=== PATIENT | female | born 1980 | race Caucasian/White ===

== ENCOUNTER 2018-11-15 06:19 | Emergency (ER) | payer MEDICAID ==
[~2018-11-15] VITALS: Ht 162.6 cm; Wt 81.6 kg
--- OUTSIDE RECORDS SUMMARY | 2018-11-15 06:29 | XMS REPORT ---
Author Author BRUNO JARVIS Organization [facility] Address [address] [place] [address] Care Team Providers Care Photographic Reproduction Technician Name Role Phone BRUNO JARVIS Unavailable PROBLEMS Unknown Problems ALLERGIES Substance Reaction Event Type Date Status Effexor Unknown Drug Allergy Jun, Active ENCOUNTERS Encounter Location Date Diagnosis [facility] [id number] [place] [phone] Jun, Poison david L23.7 [facility] [address] [phone] Nov, Fever R50.9 and Influenza A J10.1 [facility] [id number] [place] [phone] Jul, Encounter for dental examination Z01.20 IMMUNIZATIONS Vaccine Route Administration Date Status SOLUMEDROL (UP TO 125 MG) IM Intramuscular Jul 16, 2018 Administered SOCIAL HISTORY Never Assessed REASON FOR VISIT poison david all over even in genital areas.--HEIKE Hampton PLAN OF CARE Activity Details Follow Up prn Reason: VITAL SIGNS Height 64 in 2018-07-16 Weight 174.4 lbs 2018-07-16 Temperature 98.5 degrees Fahrenheit 2018-07-16 Heart Rate 62 bpm 2018-07-16 Respiratory Rate 18 2018-07-16 BMI 29.93 kg/m2 2018-07-16 Blood pressure systolic 108 mmHg 2018-07-16 Blood pressure diastolic 74 mmHg 2018-07-16 MEDICATIONS Medication Instructions Dosage Frequency Start Date End Date Duration Status Hydrocortisone 2.5 % Externally Twice a day 1 application to affected area 12h 10 days Active Alprazolam 1 MG Orally three times a day as needed 1 tablet Active Ventolin HFA 108 (90 Base) MCG/ACT Inhalation every 4 hrs 2 puffs as needed 4h Active Albuterol Active RESULTS No Results PROCEDURES Procedure Date Ordered Result Body Site SOLUMEDROL (UP TO 125 MG) Jul 16, 2018 THER/PROPH/DIAG INJ, SC/IM Jul 16, 2018 INSTRUCTIONS MEDICATIONS ADMINISTERED No Known Medications MEDICAL (GENERAL) HISTORY Type Description Date Medical History Asthma Medical History Anxiety Surgical History Gall Bladder 1998 Hospitalization History Child Births
--- OUTSIDE RECORDS SUMMARY | 2018-11-15 06:29 | XMS REPORT ---
Author Author BRUNO JARVIS Organization [facility] Address [address] [place] [address] Care Team Providers Care Record Searcher Name Role Phone BRUNO JARVIS Unavailable PROBLEMS Unknown Problems ALLERGIES Substance Reaction Event Type Date Status Effexor Unknown Drug Allergy Nov, Active ENCOUNTERS Encounter Location Date Diagnosis [facility] [id number], [place] [phone] Nov, Fever R50.9 and Influenza A J10.1 [facility] [id number] [phone] Jul, Encounter for dental examination Z01.20 IMMUNIZATIONS No Known Immunizations SOCIAL HISTORY Never Assessed REASON FOR VISIT Flu symptoms Pt reports fever, congestion for 2-3 days HEIKE Garcia PLAN OF CARE Activity Details Follow Up prn Reason: VITAL SIGNS Height 64 in 2017-11-27 Weight 174.2 lbs 2017-11-27 Temperature 100.2 degrees Fahrenheit 2017-11-27 Heart Rate 66 bpm 2017-11-27 Respiratory Rate 18 2017-11-27 BMI 29.90 kg/m2 2017-11-27 Blood pressure systolic 110 mmHg 2017-11-27 Blood pressure diastolic 62 mmHg 2017-11-27 MEDICATIONS Medication Instructions Dosage Frequency Start Date End Date Duration Status Ventolin HFA 108 (90 Base) MCG/ACT Inhalation every 4 hrs 2 puffs as needed 4h Active Albuterol Active RESULTS Name Result Date Reference Range INFLUENZA A & B (IN HOUSE) 2017-11-27 INFLUENZA A positive INFLUENZA B negative Control + Lot # [id number] Exp date PROCEDURES Procedure Date Ordered Result Body Site INFLUENZA ASSAY W/OPTIC Nov 27, 2017 INSTRUCTIONS MEDICATIONS ADMINISTERED No Known Medications MEDICAL (GENERAL) HISTORY Type Description Date Medical History Asthma Medical History Anxiety Surgical History Gall Bladder 1998 Hospitalization History Child Births
--- OUTSIDE RECORDS SUMMARY | 2018-11-15 06:30 | XMS REPORT ---
Author Author RADHA HERNANDEZ Organization [facility] Address [address] [place] [address] Care Team Providers Care Examining Officer Name Role Phone RADHA HERNANDEZ Unavailable PROBLEMS Type Condition ICD9-CM Code [id number] Code Onset Dates Condition Status SNOMED Code Problem Encounter for dental examination Z01.20 Active [id number] Assessment Encounter for dental examination Z01.20 Jul, Active [id number] ALLERGIES Substance Reaction Event Type Date Status Effexor Unknown Drug Allergy Jul, Active SOCIAL HISTORY No smoking Hx information available PLAN OF CARE VITAL SIGNS Heart Rate 51 bpm 2016-07-25 Blood pressure systolic 99 mmHg 2016-07-25 Blood pressure diastolic 60 mmHg 2016-07-25 MEDICATIONS Medication Instructions Dosage Frequency Start Date End Date Duration Status Ventolin HFA 108 (90 Base) MCG/ACT Inhalation every 4 hrs 2 puffs as needed 4h Active Albuterol Active RESULTS No Results PROCEDURES Procedure Date Ordered Related Diagnosis Body Site COMP ORAL EVALUATION - NEW/EST PT Jul 25, 2016 INTRAORL-PERIAPICAL 1 FILM [id number] Jul 25, 2016 BITEWINGS - FOUR FILMS Jul 25, 2016 INTRAORL-PERIAPICAL EA ADD FILM Jul 25, 2016 PANORAMIC FILM SEE ALSO CODE [id number] Jul 25, 2016 INTRAORL-PERIAPICAL EA ADD FILM Jul 25, 2016 INTRAORL-PERIAPICAL EA ADD FILM Jul 25, 2016 INTRAORL-PERIAPICAL EA ADD FILM Jul 25, 2016 INTRAORL-PERIAPICAL EA ADD FILM Jul 25, 2016 IMMUNIZATIONS No Known Immunizations
[2018-11-15] MEDS ORDERED: RIZA10TA37 (06:47)
[2018-11-15] MEDS ORDERED: ALPR1TAB7 (06:47)
[2018-11-15] MEDS ORDERED: NS IV 1000 ML 1,000 ML IV ONE (06:51)
--- NOTE | 2018-11-15 06:59 | ED Headache ---
General Chief Complaint: Head/Cervical Problems Stated Complaint: NEC PAIN;HEAD/MIGRAINE Nursing Triage Note: neck pain x1 week, no injury. headache x3 days. Nursing Sepsis Screen: No Definite Risk Source: patient Exam Limitations: no limitations History of Present Illness Date Seen by Provider: Nov 15, 2018 Time Seen by Provider: 06:40 Initial Comments This 38-year-old woman ambulates to the emergency room with complaints of neck pain 1 week and headache 3 days. This morning she developed nausea and vomiting associated with the headache. She does have a history of migraines. She has had some intermittent vision changes with this headache as well. She has Xanax at home for anxiety but has not taken any in several days. She has had lack of sleep and states that she sometimes garbles her words. She took Pamprin, ibuprofen, and Maxalt this morning between 04:00 and 05:00, but she then vomited and thinks she lost those medications. She also complains of an occasional "dull feeling" in the left arm for one month. She is under workup for this with her primary care provider. Her primary care provider is Dr. Swanson in [place]. She reports recently moving to the area. Her muscles in the left neck, posterior shoulder, and upper back are tense and tender. Allergies and Home Medications Allergies Coded Allergies: venlafaxine (Verified Allergy, Unknown, 11/15/18) Home Medications Cyclobenzaprine HCl 10 Mg Tablet, 10 MG PO TID Prescribed by: TORI SZYMANSKI on 11/15/18816 Hydrocodone/Acetaminophen 1 Each Tablet, 1 EACH PO Q4-6HR PRN for PAIN-MODERATE Prescribed by: TORI SZYMANSKI on 11/15/18816 Ondansetron 4 Mg Tab.rapdis, 4 MG SL Q4H Prescribed by: TORI SZYMANSKI on 11/15/18816 Prednisone 20 Mg Tab, 20 MG PO DAILY Take 3 tabs(60mg)daily, decrease by 1/2 tab(10mg)daily. Prescribed by: TORI SZYMANSKI on 11/15/18816 Promethazine HCl 25 Mg Tablet, 25 MG PO Q6H PRN for NAUSEA/VOMITING-2ND LINE Prescribed by: TORI SZYMANSKI on 12/29/18 0817 Patient Home Medication List Home Medication List Reviewed: Yes Review of Systems Review of Systems Constitutional: no symptoms reported Eyes: See HPI Ears, Nose, Mouth, Throat: no symptoms reported Respiratory: no symptoms reported Cardiovascular: no symptoms reported Gastrointestinal: see HPI Genitourinary: no symptoms reported : No Musculoskeletal: see HPI Skin: no symptoms reported Psychiatric/Neurological: See HPI Past Btekknv-Yrowbz-Jrogwu Hx Past Med/Social Hx: Reviewed and Corrections made Patient Social History Alcohol Use: Rarely Uses Recreational Drug Use: Yes Drug of Choice: cannibus Smoking Status: Never a Smoker 2nd Hand Smoke Exposure: No Recent Foreign Travel: No Contact w/Someone Who Travel: No Recent Infectious Disease Expo: No Recent Hopitalizations: No Seasonal Allergies Seasonal Allergies: No Past Medical History Surgeries: Yes Gallbladder, Tubal Ligation (Essure procedure) Respiratory: No Cardiac: Yes (hypertension) Neurological: Yes Headaches /Migraines : No 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 oz. 81.520805mk; BMI Method:Stated General Appearance: WD/WN, mild distress HEENT: PERRL/EOMI, normal ENT inspection, TMs normal, pharynx normal Neck: other (muscle tension and tenderness, especially on the left) Cardiovascular: regular rate, rhythm, no edema, no murmur Respiratory: lungs clear, normal breath sounds, no respiratory distress, no accessory muscle use Gastrointestinal: non tender, soft Back: other (tenderness in the muscles of the left upper back) Extremities: normal inspection Psychiatric: alert, oriented x 3 Crainal Nerves: normal hearing, normal speech, PERRL Coordination/Gait: normal finger to nose, normal gait Motor/Sensory: no motor deficit, no sensory deficit Skin: normal color, warm/dry Progress/Results/Core Measures Results/Orders Lab Results Laboratory Tests Test 11/15/18 06:59 Range/Units White Blood Count 5.8 4.3-11.0 10^3/uL Red Blood Count 5.02 4.35-5.85 10^6/uL Hemoglobin 15.6 11.5-16.0 G/DL Hematocrit 44 35-52 % Mean Corpuscular Volume 87 80-99 FL Mean Corpuscular Hemoglobin 31 25-34 PG Mean Corpuscular Hemoglobin Concent 36 32-36 G/DL Red Cell Distribution Width 13.0 10.0-14.5 % Platelet Count 218 130-400 10^3/uL Mean Platelet Volume 10.2 7.4-10.4 FL Neutrophils (%) (Auto) 48 42-75 % Lymphocytes (%) (Auto) 39 12-44 % Monocytes (%) (Auto) 7 0-12 % Eosinophils (%) (Auto) 6 0-10 % Basophils (%) (Auto) 0 0-10 % Neutrophils # (Auto) 2.8 1.8-7.8 X 10^3 Lymphocytes # (Auto) 2.2 1.0-4.0 X 10^3 Monocytes # (Auto) 0.4 0.0-1.0 X 10^3 Eosinophils # (Auto) 0.4 H 0.0-0.3 10^3/uL Basophils # (Auto) 0.0 0.0-0.1 10^3/uL Sodium Level 141 135-145 MMOL/L Potassium Level 4.1 3.6-5.0 MMOL/L Chloride Level 107 98-107 MMOL/L Carbon Dioxide Level 22 21-32 MMOL/L Anion Gap 12 5-14 MMOL/L Blood Urea Nitrogen 12 7-18 MG/DL Creatinine 0.92 0.60-1.30 MG/DL Estimat Glomerular Filtration Rate > 60 BUN/Creatinine Ratio 13 Glucose Level 93 70-105 MG/DL Calcium Level 9.4 8.5-10.1 MG/DL Magnesium Level 2.3 1.8-2.4 MG/DL Serum Test, Qualitative NEGATIVE NEGATIVE My Orders Orders - TORI PACK MD Basic Metabolic Panel (11/15/18 06:51) Cbc With Automated Diff (11/15/18 06:51) Magnesium (11/15/18 06:51) Saline Lock/Iv-Start (11/15/18 06:51) Ketorolac Injection (Toradol Injection) (11/15/18 07:00) Orphenadrine Injection (Norflex Injectio (11/15/18 07:00) Promethazine Injection (Phenergan Injec (11/15/18 07:00) Ns Iv 1000 Ml (Sodium Chloride 0.9%) (11/15/18 06:51) Hcg,Qualitative Serum (11/15/18 06:59) Methylprednisolone Sod Succ (Solu-Medrol (11/15/18 07:45) Medications Given in ED Current Medications Medications Dose Ordered Sig/Angelito Route Start Time Stop Time Status Last Admin Dose Admin Ketorolac Tromethamine 15 mg ONCE ONCE IVP 11/15/18 07:00 11/15/18 07:01 DC 11/15/18 07:06 15 MG Methylprednisolone Sodium Succinate 62.5 mg ONCE ONCE IVP 11/15/18 07:45 11/15/18 07:46 DC 11/15/18 07:51 62.5 MG Orphenadrine Citrate 60 mg ONCE ONCE IV 11/15/18 07:00 11/15/18 07:01 DC 11/15/18 07:06 60 MG Promethazine HCl 25 mg ONCE ONCE IVP 11/15/18 07:00 11/15/18 07:01 DC 11/15/18 07:06 25 MG Sodium Chloride 1,000 ml @ 0 mls/hr Q0M ONCE IV 11/15/18 06:51 11/15/18 06:53 DC 11/15/18 07:06 1,000 MLS/HR Vital Signs/I&O 11/15/18 06:38 Temp 98.7 Pulse 52 Resp 16 B/P (MAP) 146/84 (104) Pulse Ox 97 O2 Delivery Room Air Blood Pressure Mean: 104 Progress Progress Note #1: Time: 06:56 Progress Note Patient has been seen and examined. IV fluids, Phenergan, Toradol, and Norflex have been ordered. No focal neurologic deficits were identified. Progress Note #2: Time: 08:12 Progress Note Patient is feeling much improved and ready for dismissal. She was additionally given Solu-Medrol 62.5 mg IV route. Departure Impression Primary Impression: Migraine Qualified Codes: G43.909 - Migraine, unspecified, not intractable, without status migrainosus Additional Impressions: Neck pain Nausea and vomiting Qualified Codes: R11.2 - Nausea with vomiting, unspecified Muscle spasms of neck Disposition: 01 HOME, SELF-CARE Condition: Improved Departure-Patient Inst. Decision time for Depature: 08:13 Patient Instructions: Migraine Headache (DC) Add. Discharge Instructions: Return home and rest in a quiet, calm, dark environment. You may take one of your Xanax if needed to help you rest. For nausea and vomiting, start with Zofran (ondansetron) dissolved under the tongue as prescribed. Add Phenergan (promethazine) as prescribed for nausea and vomiting not well controlled by Zofran. For pain, take ibuprofen up to 600 mg every 6 hours as needed. Use your hydrocodone as prescribed for backup pain medication. Use cyclobenzaprine as prescribed for muscle tension and spasms. Return to emergency room if symptoms are worsening. Follow-up with a primary care provider as soon as possible. If symptoms do not resolve soon, consider seeking imaging with MRI of the head and/or cervical spine. Prednisone as prescribed should help reduce muscle tension and pain and prevent rebound headache. All discharge instructions reviewed with patient and/or family. Voiced understanding. Scripts Hydrocodone/Acetaminophen (Hydrocodone-Acetamin 5-325 mg) 1 Each Tablet 1 EACH PO Q4-6HR PRN for PAIN-MODERATE, #5 TAB Prov: TORI PACK MD 11/15/18 Promethazine HCl (Promethazine Tablet) 25 Mg Tablet 25 MG PO Q6H PRN for NAUSEA/VOMITING-2ND LINE, #10 TAB Prov: TORI PACK MD 11/15/18 Ondansetron (Ondansetron Odt) 4 Mg Tab.rapdis 4 MG SL Q4H, #10 TAB Prov: TORI PACK MD 11/15/18 Cyclobenzaprine HCl (Cyclobenzaprine HCl) 10 Mg Tablet 10 MG PO TID, #10 TAB Prov: TORI PACK MD 11/15/18 Prednisone (Prednisone) 20 Mg Tab 20 MG PO DAILY, #4 TAB Take 3 tabs(60mg)daily, decrease by 1/2 tab(10mg)daily. Prov: TORI PACK MD 11/15/18 TORI PACK MD Nov 15, 2018 06:59
[2018-11-15] MEDS ORDERED: KETOROLAC 30 MG/ML VIAL IVP ONE (07:00)
[2018-11-15] MEDS ORDERED: ORPHENADRINE 60 MG/2 ML (NORFLEX) AMP IV ONE (07:00)
[2018-11-15] MEDS ORDERED: PROMETHAZINE INJ 25 MG/ML (PHENERGAN) AMP IVP ONE (07:00)
[2018-11-15 07:05] LABS: BASOPHILS % (AUTO) 0 % (0-10); EOSINOPHILS # (AUTO) 0.4 10^3/uL (0.0-0.3); EOSINOPHILS % (AUTO) 6 % (0-10); HEMATOCRIT 44 % (35-52); HEMOGLOBIN 15.6 G/DL (11.5-16.0); LYMPHOCYTES # (AUTO) 2.2 X 10^3 (1.0-4.0); LYMPHOCYTES % (AUTO) 39 % (12-44); MEAN CORPUSCULAR HEMOGLOBIN 31 PG (25-34); MEAN CORPUSCULAR HGB CONC 36 G/DL (32-36); MEAN CORPUSCULAR VOLUME 87 FL (80-99); MEAN PLATELET VOLUME 10.2 FL (7.4-10.4); MONOCYTES # (AUTO) 0.4 X 10^3 (0.0-1.0); MONOCYTES % (AUTO) 7 % (0-12); NEUTROPHILS # (AUTO) 2.8 X 10^3 (1.8-7.8); NEUTROPHILS % (AUTO) 48 % (42-75); PLATELET COUNT 218 10^3/uL (130-400); RED BLOOD COUNT 5.02 10^6/uL (4.35-5.85); WHITE BLOOD COUNT 5.8 10^3/uL (4.3-11.0)
[2018-11-15 07:23] LABS: BUN/CREATININE RATIO 13; CALCIUM 9.4 MG/DL (8.5-10.1); CARBON DIOXIDE 22 MMOL/L (21-32); CHLORIDE 107 MMOL/L (98-107); CREATININE SERUM 0.92 MG/DL (0.60-1.30); GFR ESTIMATED > 60; GLUCOSE 93 MG/DL (70-105); MAGNESIUM 2.3 MG/DL (1.8-2.4); POTASSIUM 4.1 MMOL/L (3.6-5.0); SODIUM 141 MMOL/L (135-145)
--- NOTE | 2018-11-15 07:35 | NUR ---
Pt reports feeling some relief at this time. Pt reports, "head feeling a little funny, but I think it't the muscle relaxer." Reported to Dr. Holloway. Will continue to monitor.
[2018-11-15] MEDS ORDERED: methylPREDNISolone 125 MG (Solu-MEDROL) VIAL IVP ONE (07:45)
[2018-11-15] MEDS ORDERED: HYDR-3812 PO (08:17)
[2018-11-15] MEDS ORDERED: PROM25TA14 PO (08:17)
[2018-11-15] MEDS ORDERED: ONDA4TAB11 SL (08:17)
[2018-11-15] MEDS ORDERED: PRD20T PO (08:17)
[2018-11-15] MEDS ORDERED: CYCL10TA9 PO (08:17)
== END 2018-11-15 08:33 | disposition home or self-care (01) ==
LOC: MERGE 06:27 → ER 06:27
DX: G43.909 Migraine, unspecified, not intractable, without status migrainosus (principal); M54.2 Cervicalgia; R11.2 Nausea with vomiting, unspecified; M62.838 Other muscle spasm; F41.9 Anxiety disorder, unspecified; F32.9 Major depressive disorder, single episode, unspecified; Z97.5 Presence of (intrauterine) contraceptive device; Z98.51 Tubal ligation status; Z79.52 Long term (current) use of systemic steroids; Z88.8 Allergy status to other drugs, medicaments and biological substances
CPT/HCPCS: 36415; 80048; 83735; 84703; 85025; 96361; 96374; 96375

== ENCOUNTER → 2022-12-11 | Outpatient (CLI) | payer MEDICAID ==
[~2022-12-11] MED LIST: ACHD5005 PO; ALPR1TAB7; CYCL10TA25 PO; ONDA4TAB11 SL; PRD20T PO; PROM25TA14 PO; RIZA10TA37
--- NOTE | 2022-12-11 14:52 | Diagnostic Imaging Report ---
PROCEDURE: Pelvic comp/transvaginal sonogram. TECHNIQUE: Complete transabdominal and transvaginal pelvic ultrasound was performed. In addition, limited pelvic Doppler was performed. INDICATION: Evaluate Essure coils. FINDINGS: Uterus is anteverted measuring 8.8 x 4.6 x 5.0 cm. Endometrium is 5 mm in thickness. No myometrial mass is identified. Essure coils were visualized on both the right and left and appear to be in appropriate location. Right ovary measures 2.5 x 1.7 x 2.3 cm and the left ovary measures 3.7 x 2.1 x 3.4 cm. There is blood flow to both ovaries. Ovaries contain small follicles. No adnexal mass or free fluid is detected. IMPRESSION: Unremarkable transabdominal and transvaginal pelvic ultrasound with limited pelvic Doppler. Dictated by: Dictated on workstation # [id number]
== END ==
LOC: RAD 12:05
PROVIDERS: ATTEND Obstetrics & Gynecology
DX: R10.2 Pelvic and perineal pain (principal)
CPT/HCPCS: 76830; 76856